=== PATIENT | male | born 1955 | race Caucasian/White ===

== ENCOUNTER 2020-06-14 11:28 | Day surgery (SDC) | payer MEDICARE, BC ==
[~2020-06-14] VITALS: Ht 175.3 cm; Wt 87.4 kg
[~2020-06-14 11:28] MED LIST: ATEN50TA PO; CHOL2000 PO; FENO145T26 PO; FLO0.4C PO; FURO80TA3 PO; GLUC100017 PO; HYDR25TA4 PO; LISI-790 PO; MULT-1085 PO; OMEG-82 PO; RED600TA PO; ROSU20TA2 PO
[2020-06-14] MEDS ORDERED: normal saline 1000ml 1,000 ML IV PRN (11:55)
[2020-06-14 12:00] VITALS: BP 141/85
[2020-06-14] MEDS ORDERED: CARV25TA56 PO (12:12)
[2020-06-14] MEDS ORDERED: FOSI20TA97 PO (12:12)
[2020-06-14] MEDS ORDERED: METO5TAB7 PO (12:12)
[2020-06-14] MEDS ORDERED: MYCO500T5 PO (12:12)
[2020-06-14] MEDS ORDERED: PRE5T PO (12:12)
[2020-06-14] MEDS ORDERED: TACR1CAP PO (12:12)
[2020-06-14] MEDS ORDERED: ASPI-1397 PO (12:12)
[2020-06-14] MEDS ORDERED: fentaNYL/PF 50MCG/1 ML 2ML syringe ONE ×3 (13:50→15:35)
[2020-06-14] MEDS ORDERED: LIDOcaine 1%/PF 5ML 10 MG/ML VIAL ONE (13:50)
[2020-06-14] MEDS ORDERED: iohexol 300mg/ml 100ml inj. ONE (13:50)
[2020-06-14] MEDS ORDERED: midazolam 1 mg/ML 2ml injection ONE ×2 (13:50→14:25)
[2020-06-14] MEDS ORDERED: heparin 1,000 UNITS/NS 500ml 500 ML ONE (13:54)
[2020-06-14] MEDS ORDERED: heparin 1,000unit/ml 10ml vial 10 ML ONE (15:26)
[2020-06-14] MEDS ORDERED: hydrALAZINE 20mg/ml inj. IV ONE (15:33)
[2020-06-14 16:20] VITALS: BP 128/70
[2020-06-14 16:30] VITALS: BP 128/80
[2020-06-14 16:45] VITALS: BP 150/92
[2020-06-14 17:00] VITALS: BP 166/89
[2020-06-14 17:30] VITALS: BP 146/77
== END 2020-06-14 17:45 | disposition home or self-care (01) ==
LOC: SSTAY O 11:28
PROVIDERS: ATTEND Radiology Diagnostic Radiology
DX: T82.858A Stenosis of other vascular prosthetic devices, implants and grafts, initial encounter (principal); J93.83 Other pneumothorax; N18.9 Chronic kidney disease, unspecified; Z94.0 Kidney transplant status; Z88.5 Allergy status to narcotic agent; Z88.1 Allergy status to other antibiotic agents; Z79.899 Other long term (current) drug therapy; Z79.82 Long term (current) use of aspirin; Y83.2 Surgical operation with anastomosis, bypass or graft as the cause of abnormal reaction of the patient, or of later complication, without mention of misadventure at the time of the procedure; Y92.89 Other specified places as the place of occurrence of the external cause
CPT/HCPCS: 36902; 99152; 99153; C1725; C1769; C1894; J0360; J1644; J2250; J3010; J7030; Q9967

== ENCOUNTER 2020-06-19 12:19 | Day surgery (SDC) | payer MEDICARE, BC ==
[~2020-06-19] VITALS: Ht 175.3 cm; Wt 84.6 kg
[~2020-06-19 12:19] MED LIST changes: +ASPI-1397 PO; -ATEN50TA PO; +CARV25TA56 PO; -FENO145T26 PO; +FOSI20TA97 PO; -GLUC100017 PO; -HYDR25TA4 PO; -LISI-790 PO; +METO5TAB7 PO; +MYCO500T5 PO; -OMEG-82 PO; +PRE5T PO; -RED600TA PO; +TACR1CAP PO
[2020-06-19 12:45] VITALS: BP 129/74
[2020-06-19] MEDS ORDERED: normal saline 1000ml 1,000 ML IV SCH (12:50)
[2020-06-19] MEDS ORDERED: POTA20TA19 PO (13:05)
[2020-06-19 13:26] VITALS: BP 129/74
[2020-06-19] MEDS ORDERED: LIDOcaine 1%/PF 5ML 10 MG/ML VIAL ONE (14:06)
[2020-06-19] MEDS ORDERED: heparin 1,000unit/ml 10ml vial 10 ML ONE ×2 (14:08→14:47)
--- NOTE | 2020-06-19 14:15 | NUR ---
Patient to angio at this time
[2020-06-19 15:33] VITALS: BP 153/88
[2020-06-19 15:46] VITALS: BP 143/93
== END 2020-06-19 15:55 | disposition home or self-care (01) ==
LOC: SSTAY O 12:19
PROVIDERS: ATTEND Radiology Vascular & Interventional Radiology
DX: T82.868A Thrombosis due to vascular prosthetic devices, implants and grafts, initial encounter (principal); N18.9 Chronic kidney disease, unspecified; Z88.1 Allergy status to other antibiotic agents; Z88.5 Allergy status to narcotic agent; Z79.899 Other long term (current) drug therapy; Z79.82 Long term (current) use of aspirin; Y83.8 Other surgical procedures as the cause of abnormal reaction of the patient, or of later complication, without mention of misadventure at the time of the procedure; Y92.89 Other specified places as the place of occurrence of the external cause
CPT/HCPCS: 36558; 76937; 77001; C1750; C1769; C1894; J1644; A9270